=== PATIENT | female | born 1955 | race Caucasian/White ===

== ENCOUNTER 2018-01-10 08:50 | Outpatient (CLI) | payer OTHER | END 2018-01-10 08:51 | disposition home or self-care (01) | LOC: BICMAMMO 08:50 | PROVIDERS: ATTEND Obstetrics & Gynecology | DX: Z12.31 Encounter for screening mammogram for malignant neoplasm of breast (principal); R92.1 Mammographic calcification found on diagnostic imaging of breast; Z80.3 Family history of malignant neoplasm of breast | CPT/HCPCS: 77063; 77067 ==

== ENCOUNTER 2019-06-12 08:09 | Outpatient (CLI) | payer BC ==
--- NOTE | 2019-06-12 09:02 | CT ---
EXAM: CT Abdomen W WO Con PROVIDED CLINICAL HISTORY: Pancreatitis, epigastric pain. COMPARISON: None FINDINGS: The lung bases, liver, spleen, pancreas, bilateral adrenal glands demonstrate a normal CT appearance. Subcentimeter too small to characterize hypodense lesion is seen in the inferior pole right kidney. K idneys otherwise have a normal CT appearance. Minimal vascular calcifications are seen in the abdominal aorta. There is inflammatory stranding seen within the central mesentery with increase in number of lymph no [place] as well as enlargement of mesenteric lymph nodes. Largest lymph node measures approximately 1.3 cm in short axis dimension. Mild increased number of a aortocaval lymph nodes are present which are n ot enlarged by CT size criteria. There is colonic diverticulosis seen extending from the ascending colon to the visualized proximal si gmoid colon. Pelvis was not included on this exam. The incompletely imaged appendix is normal in caliber. Loops of small bowel are also normal in caliber. No free fluid or fluid collection is seen in the abdomen or pelvis. Degenerative changes are present in the spine with mild right convex scoliosis lumbar spine. IMPRESSION: 1. Inflammatory stranding in the central mesentery with well-defined capsule with increased number an d enlarged mesenteric lymph nodes. 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 2. The pancreas enhances normally, and no pancreatic or peripancreatic fluid collection is identified . 3. Colonic diverticulosis.
[2019-06-12] MEDS ORDERED: Iopamidol-370 76% 500 ML 1 ML ONE (11:00)
== END 2019-06-12 08:10 | disposition home or self-care (01) ==
LOC: BICCT 08:09
PROVIDERS: ATTEND Internal Medicine
DX: K85.90 Acute pancreatitis without necrosis or infection, unspecified (principal); R10.13 Epigastric pain; R59.0 Localized enlarged lymph nodes; K57.30 Diverticulosis of large intestine without perforation or abscess without bleeding
CPT/HCPCS: 74170; 82565; Q9967